=== PATIENT | female | born 2000 | race Two or more races ===

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

== ENCOUNTER 2019-08-05 09:02 | Emergency (ER) | payer MEDICAID ==
[~2019-08-05] VITALS: Ht 170.2 cm; Wt 55.1 kg
[2019-08-05 09:10] VITALS: BP 113/86
[2019-08-05 09:53] LABS: MICROSCOPIC AUTO
[2019-08-05 09:55] LABS: CULTURE INDICATED? YES
[2019-08-05] MEDS ORDERED: CEFTRIAXONE 1,000 MG IM ONE (11:00)
[2019-08-05] MEDS ORDERED: LIDOCAINE-MPF 1%, 5ML ONE (11:07)
[2019-08-05] MEDS ORDERED: CEFTRIAXONE 1,000 MG ONE (11:07)
--- NOTE | 2019-08-05 11:47 | NUR ---
Patient/Caregiver given discharge instructions and they have confirmed that they understand the instructions. Patient ambulatory with steady gait.
== END 2019-08-05 11:49 | disposition home or self-care (01) ==
LOC: ED 11:45
DX: N30.00 Acute cystitis without hematuria (principal); F17.200 Nicotine dependence, unspecified, uncomplicated
CPT/HCPCS: 81001; 87077; 87086; 96372; 99283; J0696

== ENCOUNTER 2019-12-21 22:25 | Outpatient (CLI) | payer MEDICAID ==
[~2019-12-21] VITALS: Ht 175.3 cm; Wt 54.5 kg
== END 2019-12-22 | disposition home or self-care (01) ==
LOC: LDOP 22:25
PROVIDERS: ATTEND Obstetrics & Gynecology
DX: O36.8190 Decreased fetal movements, unspecified trimester, not applicable or unspecified (principal); Z3A.00 Weeks of gestation of pregnancy not specified
CPT/HCPCS: 59025; 99211; G0463

== ENCOUNTER 2020-05-27 12:40 | Emergency (ER) | payer MEDICAID ==
[~2020-05-27] VITALS: Ht 167.6 cm; Wt 52.2 kg
[2020-05-27] MEDS ORDERED: SODIUM CHLORIDE FLUSH 10ML SYR IVF ONE (13:30)
[2020-05-27] MEDS ORDERED: SODIUM CHLORIDE 0.9% 1,000ML IVBOLUS ONE (13:30)
--- NOTE | 2020-05-27 13:38 | NUR ---
PT C/O SHARP ABD PAIN TO MID AND LEFT LOWER QUADRANTS X4 DAYS. + NAUSEA TODAY. NO VOMITING. PT C/O CONSTIPATION A COUPLE DAYS AGO AND NOW LOOSE STOOL. ERP WAS IN TO SEE PT. POC RV'WD WITH HER. SIGNIFICANT OTHER AT BS.
--- NOTE | 2020-05-27 13:44 | NUR ---
XR AT BS. Addendum: 05/27/20 at 1345 by HBETOMASON PT TO XR VIA BRENDA.
[2020-05-27 13:48] LABS: BASOPHILS % (AUTO) 0 % (0-1); EOSINOPHILS % (AUTO) 0 % (1-7); LYMPHOCYTES % (AUTO) 8 % (22-44); MEAN CORPUSCULAR HEMOGLOBIN 24.4 pg (27.0-34.8); MEAN CORPUSCULAR HGB CONC 31.8 g/dL (32.4-35.8); MEAN PLATELET VOLUME 7.3 fL (7.4-10.4); MONOCYTES % (AUTO) 7 % (2-9); NEUTROPHILS % (AUTO) 85 % (42-75); PLATELET COUNT 369 x10^3/uL (130-400); RED BLOOD COUNT 4.57 x10^6/uL (3.82-5.3); RED CELL DISTRIBUTION WIDTH 20.2 % (9.6-15.2)
[2020-05-27 13:49] LABS: MD NO
--- NOTE | 2020-05-27 13:54 | NUR ---
PT AMBULATED TO BR WITHOUT DIFFICULTY.
[2020-05-27 13:55] LABS: ALBUMIN 3.2 g/dL (3.4-5.0); ANION GAP 7 mmol/L (5-15); CALCIUM 8.9 mg/dL (8.5-10.1); CHLORIDE 107 mmol/L (98-107)
[2020-05-27 14:02] LABS: ALANINE AMINOTRANSFERASE 19 U/L (12-78); ALKALINE PHOSPHATASE 112 U/L (45-117); BILIRUBIN,TOTAL 0.3 mg/dL (0.2-1.0); CREATININE 0.78 mg/dL (0.55-1.02); TOTAL PROTEIN 8.2 g/dL (6.4-8.2)
[2020-05-27 14:42] LABS: MICROSCOPIC AUTO
--- NOTE | 2020-05-27 15:42 | NUR ---
RESIDENT WAS IN FOR RECHECK.
[2020-05-27 15:50] VITALS: BP 114/66
--- NOTE | 2020-05-27 16:04 | NUR ---
D/C INSTRUCTIONS, MEDS & F/U APPT'S RV'WD WITH PT, SHE VERBALIZES UNDERSTANDING. RX GIVEN X3. INSTRUCTED TO RETURN TO ED FOR WORSENING ABD PAIN, FEVERS, OR OTHER CONCERNS. PT AMBULATED OUT OF ED WITH SIGNIFICANT OTHER WITHOUT DIFFICULTY.
== END 2020-05-27 16:05 | disposition home or self-care (01) ==
LOC: ED 14:28
DX: N30.00 Acute cystitis without hematuria (principal); R19.7 Diarrhea, unspecified; R00.0 Tachycardia, unspecified; Z87.891 Personal history of nicotine dependence
CPT/HCPCS: 36415; 74021; 80053; 81001; 83690; 84703; 85025; 87077; 87086; 93005; 96360; 96361; 99285; J7030; 87186